=== PATIENT | female | born 1995 | race Caucasian/White ===

== ENCOUNTER 2019-08-10 21:19 | Observation (INO) ==
[2019-08-10 21:57] LABS: Apearance,Urine Slightly Hazy (Clear); Bacteria,Urine Occasional /HPF (Few); Bilirubin,Urine Negative (Negative); Blood, Urine Large mg/dL (Negative); Glucose,Urine (UA) Negative (Negative); Ketones,Urine 20 mg/dL (Negative); Mucus,Urine Occasional /LPF (Occasional); Nitrite,Urine Negative (Negative); Protein,Urine Negative; RBC,Urine 7 /HPF (0-4); Squamous Epithelial Cell,Urine Occasional /HPF (0-10); Urine Color Yellow (Yellow); Urine Specific Gravity 1.013 (1.001-1.035); Urine Urobilinogen < 2.0 EU/DL (0.2-1.0); WBC,Urine 47 /HPF (0-6)
[2019-08-10] MEDS ORDERED: LACTATED RINGERS 1,000 ML IV ONE (22:20)
[2019-08-10] MEDS ORDERED: PROMETHAZINE 25 MG/1 ML VIAL IM ONE (22:49)
[2019-08-10] MEDS ORDERED: MEPERIDINE 25 MG/1 ML VIAL IM ONE (22:49)
[2019-08-10] MEDS ORDERED: TERBUTALINE 1 MG/1 ML VIAL SUBCUT PRN (23:06)
[2019-08-10] MEDS ORDERED: MAGNESIUM SULF DRIP 40 GM/1,000 ML ML IV SCH (23:30)
[2019-08-10] MEDS ORDERED: LACTATED RINGERS 1,000 ML IV SCH (23:30)
[2019-08-10] MEDS ORDERED: BETAMETH SODIUM PHOS/ACETATE 30 MG/5 ML VIAL IM SCH (23:30)
[2019-08-10] MEDS ORDERED: MAGNESIUM SULF RIDER 100 ML IV ONE (23:30)
[2019-08-10 23:37] LABS: Basophils % 0.2 % (0.0-0.8); Eosinophils % 0.1 % (0.00-10.9); Hematocrit 32.5 VOL% (35.7-47.0); Hemoglobin 10.7 GM/DL (12.0-16.0); Immature Granulocytes % 0.5 %; Immature Granulocytes Absolute 0.06 #; Lymphocytes # 1.1 10*3/uL (1.4-4.0); Lymphocytes % 8.2 % (21.3-54.2); Mean Corpuscular HGB Conc 32.9 GM/DL (32-36); Mean Corpuscular Volume 92.9 FL (87-102); Monocytes % 7.4 % (1.7-12.7); Neutrophils % 83.6 % (38.7-73.9); Platelet Count 162 T/CUMM (130-400); Red Cell Distribution Width 12.5 % (9.3-17.3); White Blood Count 12.9 T/CUMM (4-12)
[2019-08-11 00:03] LABS: Albumin 2.6 G/DL (3.4-5.0); Bilirubin,Total 0.5 MG/DL (0.2-1.0); Calcium 8.5 MG/DL (8.5-10.1); Osmolality,Calculated 262.4 MOS/KG (273-304); Total Protein 6.9 G/DL (6.4-8.3)
[2019-08-11 00:18] LABS: Apearance,Urine CLEAR (Clear); Bilirubin,Urine Negative (Negative); Blood, Urine Negative (Negative); Glucose,Urine (UA) Negative (Negative); Ketones,Urine 20 mg/dL (Negative); Mucus,Urine Occasional /LPF (Occasional); Nitrite,Urine Negative (Negative); Protein,Urine Negative; RBC,Urine 1 /HPF (0-4); Squamous Epithelial Cell,Urine Occasional /HPF (0-10); Urine Color Yellow (Yellow); Urine Specific Gravity 1.011 (1.001-1.035); Urine Urobilinogen < 2.0 EU/DL (0.2-1.0); WBC,Urine 1 /HPF (0-6)
[2019-08-11] MEDS ORDERED: BUTORPHANOL 1 MG/ML VIAL IV PRN (04:23)
[2019-08-11] MEDS ORDERED: BUTORPHANOL 1 MG/ML VIAL ONE (04:30)
[2019-08-11 08:04] VITALS: BP 99/58
[2019-08-11] MEDS ORDERED: levETIRAcetam 500 MG TABLET PO SCH (09:00)
== END 2019-08-11 12:22 | DRG 566 ==
LOC: N.LDOUT 21:19 → N.LD 21:22 → INTOOBSV 23:15 → N.LD 08-11 02:56
PROVIDERS: ADMIT Obstetrics & Gynecology; ATTEND Obstetrics & Gynecology

== ENCOUNTER 2019-08-13 19:43 | Inpatient (IN) ==
[2019-08-13] MEDS ORDERED: ONDANSETRON 4 MG/2 ML VIAL ONE (19:52)
[2019-08-13] MEDS ORDERED: BUTORPHANOL 2 MG/ML VIAL ONE (19:52)
[2019-08-13] MEDS ORDERED: LIDOCAINE 1% 50 ML VIAL ONE (20:02)
[2019-08-13] MEDS ORDERED: BUTORPHANOL 2 MG/ML VIAL IV PRN (20:03)
[2019-08-13] MEDS ORDERED: ONDANSETRON 4 MG/2 ML VIAL IV PRN ×2 (20:03→20:38)
[2019-08-13] MEDS ORDERED: OXYTOCIN/LR 20 UNIT/1,000 ML BAG IV ONE ×2 (20:04→20:38)
[2019-08-13] MEDS ORDERED: CARBOPROST TROMETHAMINE 250 MCG/ML AMP IM ONE (20:08)
[2019-08-13] MEDS ORDERED: miSOPROStoL 200 MCG TABLET ONE (20:08)
[2019-08-13] MEDS ORDERED: METHYLERGONOVINE 0.2 MG/1 ML AMP ONE (20:08)
[2019-08-13] MEDS ORDERED: OXYTOCIN/LR 30 UNIT/1,000 ML BAG IV ONE (20:11)
[2019-08-13] MEDS ORDERED: LACTATED RINGERS 1,000 ML IV SCH (20:30)
[2019-08-13] MEDS ORDERED: WITCH HAZEL PADS 100/JAR TOP PRN (20:38)
[2019-08-13] MEDS ORDERED: BISACODYL 10 MG SUPP RECTAL PRN (20:38)
[2019-08-13] MEDS ORDERED: MEASLES/MUMPS/RUBELLA VACCINE 0.5 ML VIAL SUBCUT ONE (20:38)
[2019-08-13] MEDS ORDERED: IBUPROFEN 800 MG TABLET PO PRN (20:38)
[2019-08-13] MEDS ORDERED: DIPH/TET/ACEL PERT BOOSTER VACCINE 0.5 ML VIAL IM ONE (20:38)
[2019-08-13] MEDS ORDERED: RHO(D) IMMUNE GLOBULIN 300 MCG SYRINGE IM ONE (20:38)
[2019-08-13] MEDS ORDERED: ACETAMINOPHEN 325 MG TABLET PO PRN (20:38)
[2019-08-13] MEDS ORDERED: oxyCODONE/ACETAMINOPHEN 5-325 MG TABLET PO PRN ×2 (20:38)
[2019-08-13] MEDS ORDERED: LANOLIN 50% CREAM 0.3 OZ TUBE TOP PRN (20:38)
[2019-08-13] MEDS ORDERED: BENZOCAINE 20%/MENTHOL 0.5% SPRAY 56 GM CAN TOP PRN (20:38)
[2019-08-13] MEDS ORDERED: HYDROCORTISONE 2.5% RECTAL CREAM 30 GM TUBE TOP PRN (20:38)
[2019-08-13 20:55] LABS: Basophils % 0.2 % (0.0-0.8); Hematocrit 27.5 VOL% (35.7-47.0); Hemoglobin 8.6 GM/DL (12.0-16.0); Immature Granulocytes % 0.7 %; Immature Granulocytes Absolute 0.03 #; Lymphocytes # 0.5 10*3/uL (1.4-4.0); Lymphocytes % 11.3 % (21.3-54.2); Mean Corpuscular HGB Conc 31.3 GM/DL (32-36); Mean Corpuscular Volume 97.9 FL (87-102); Mean Platelet Volume 10.2 FL (9.6-12.0); Monocytes % 1.5 % (1.7-12.7); Neutrophils % 86.3 % (38.7-73.9); Platelet Count 103 T/CUMM (130-400); Red Blood Count 2.81 MC/CUMM (3.8-5.5); Red Cell Distribution Width 12.8 % (9.3-17.3); White Blood Count 4.1 T/CUMM (4-12)
[2019-08-13] MEDS ORDERED: DOCUSATE SODIUM 100 MG CAPSULE PO SCH (21:00)
[2019-08-13 21:17] LABS: Alanine Aminotransferase 25 U/L (13-56); Albumin 1.9 G/DL (3.4-5.0); Alkaline Phosphatase 120 U/L (45-117); Aspartate Amino Transferase 30 U/L (0-37); Bilirubin,Total < 0.39 MG/DL (0.2-1.0); Blood Urea Nitrogen 5 MG/DL (7-18); Calcium 7.4 MG/DL (8.5-10.1); Estimated Glom Filtration Rate 116 ML/MIN; Glucose 79 MG/DL (74-106); Total Protein 5.6 G/DL (6.4-8.3)
[2019-08-13 21:21] LABS: Band Neutrophils 1 % (0-10); Hypochromasia Slight; Lymphocytes 12 % (20-55); Platelet Estimate Adequate; Segmented Neutrophils 85 % (50-85); Total Cells Counted 100
[2019-08-13] MEDS ORDERED: SIMETHICONE CHEW 80 MG TABLET PO PRN (22:53)
[2019-08-14 07:18] LABS: Basophils # 0.1 10*3/uL (0.0-0.2); Basophils % 0.3 % (0.0-0.8); Eosinophils % 0.1 % (0.00-10.9); Hematocrit 26.5 VOL% (35.7-47.0); Hemoglobin 8.7 GM/DL (12.0-16.0); Immature Granulocytes % 1.2 %; Immature Granulocytes Absolute 0.25 #; Lymphocytes # 1.1 10*3/uL (1.4-4.0); Lymphocytes % 5.3 % (21.3-54.2); Mean Corpuscular HGB Conc 32.8 GM/DL (32-36); Mean Corpuscular Volume 93.6 FL (87-102); Mean Platelet Volume 10.4 FL (9.6-12.0); Monocytes % 3.6 % (1.7-12.7); Neutrophils % 89.5 % (38.7-73.9); Platelet Count 100 T/CUMM (130-400); Red Blood Count 2.83 MC/CUMM (3.8-5.5); Red Cell Distribution Width 12.7 % (9.3-17.3); White Blood Count 20.3 T/CUMM (4-12)
[2019-08-14 07:42] LABS: Band Neutrophils 39 % (0-10); Eosinophils 1 % (0-10); Lymphocytes 2 % (20-55); Platelet Estimate Adequate; Segmented Neutrophils 57 % (50-85); Total Cells Counted 100
[2019-08-14 07:43] LABS: Anisocytosis Slight; Macrocytosis Slight
[2019-08-14] MEDS ORDERED: FERROUS SULFATE 325 MG TABLET PO SCH (09:00)
[2019-08-14] MEDS ORDERED: levETIRAcetam 500 MG TABLET PO SCH (09:00)
[2019-08-14 11:41] VITALS: BP 96/52
== END 2019-08-14 14:20 | disposition home or self-care (01) | DRG 560 ==
LOC: N.LDOUT 19:43 → N.LD 20:06 → N.OB 23:50
PROVIDERS: ADMIT Obstetrics & Gynecology; ATTEND Obstetrics & Gynecology